=== PATIENT | female | born 1965 | race Caucasian/White ===

== ENCOUNTER 2021-01-17 15:21 | Emergency (ER) | payer OTHER ==
[~2021-01-17] VITALS: Ht 162.6 cm; Wt 73.5 kg
[2021-01-17] MEDS ORDERED: NEURONTIN300 MG PO (15:41)
[2021-01-17] MEDS ORDERED: LISINOPRIL10 MG PO (15:42)
[2021-01-17] MEDS ORDERED: CELEXA 20 MG TA20 MG PO (15:42)
[2021-01-17] MEDS ORDERED: CELEBREX50 MG PO (15:42)
[2021-01-17] MEDS ORDERED: FLEXERIL PO (15:42)
[2021-01-17] MEDS ORDERED: LAMOTRIGINE250 MG PO (15:42)
[2021-01-17] MEDS ORDERED: TRAMADOL 50 MG50 MG PO (15:43)
[2021-01-17] MEDS ORDERED: INDERAL LA120 M1 PO (15:43)
[2021-01-17] MEDS ORDERED: REGLAN 10 MG TA10 MG PO (15:43)
[2021-01-17 18:19] VITALS: BP 111/87
== END 2021-01-17 18:20 | disposition home or self-care (01) ==
LOC: M.ERS 15:21
DX: S80.12XA Contusion of left lower leg, initial encounter (principal); G43.909 Migraine, unspecified, not intractable, without status migrainosus; F17.210 Nicotine dependence, cigarettes, uncomplicated; Z79.899 Other long term (current) drug therapy; Z88.8 Allergy status to other drugs, medicaments and biological substances; W01.198A Fall on same level from slipping, tripping and stumbling with subsequent striking against other object, initial encounter; Y93.89 Activity, other specified; Y92.89 Other specified places as the place of occurrence of the external cause; Y99.9 Unspecified external cause status

== ENCOUNTER 2021-03-20 00:05 | Emergency (ER) | payer OTHER ==
[~2021-03-20] VITALS: Ht 162.6 cm; Wt 74.8 kg
[~2021-03-20 00:05] MED LIST: CELEBREX50 MG PO; CELEXA 20 MG TA20 MG PO; FLEXERIL PO; INDERAL LA120 M1 PO; LAMOTRIGINE250 MG PO; LISINOPRIL10 MG PO; NEURONTIN300 MG PO; REGLAN 10 MG TA10 MG PO; TRAMADOL 50 MG50 MG PO
[2021-03-20] MEDS ORDERED: TOPAMAX (01:12)
[2021-03-20 01:18] LABS: URINE BILIRUBIN NEGATIVE (Negative); URINE BLOOD TRACE (Negative); URINE CLARITY CLEAR; URINE COLOR YELLOW; URINE GLUCOSE-RANDOM NEGATIVE (Negative); URINE KETONES NEGATIVE (Negative); URINE LEUKOCYTES-REFLEX NEGATIVE (Negative); URINE NITRITE-REFLEX NEGATIVE (Negative); URINE PROTEIN NEGATIVE (Negative); URINE SPECIFIC GRAVITY 1.015 (1.005-1.030); URINE UROBILINOGEN 0.2 E.U./dl (0.2-1.0)
[2021-03-20 02:02] LABS: ABSOLUTE EOSINOPHILS 0.1 thou/uL (0.0-0.7); ABSOLUTE LYMPHOCYTES 1.3 thou/uL (0.8-5.3); ABSOLUTE MONOCYTES 0.6 thou/uL (0.0-1.2); ABSOLUTE NEUTROPHILS 8.2 thou/uL (1.6-8.1); BASOPHILS 0.4 %; EOSINOPHILS 0.6 %; HEMATOCRIT 38.7 % (37.0-47.0); HEMOGLOBIN 12.4 gm/dL (12.0-15.0); LYMPHOCYTES 12.7 %; MCHC 31.9 g/dL (28.0-37.0); MCV 100.3 fL (80.0-100.0); MONOCYTES 6.2 %; MPV 7.2 fl. (7.2-11.1); NUCLEATED RBCS 0 /100WBC; PLATELET COUNT* 260 thou/uL (150-400); POLYS 80.1 %; RBC 3.86 mil/uL (4.20-5.00); RDW-CV 14.4 % (10.5-14.5); WBC 10.2 thou/uL (4.0-11.0)
[2021-03-20 02:11] LABS: CALCIUM 9.9 mg/dL (8.5-10.1); CREATININE 2.7 mg/dL (0.6-1.3); POTASSIUM 4.4 mmol/L (3.5-5.1)
[2021-03-20 02:15] LABS: ALBUMIN 3.2 g/dL (3.4-5.0); TOTAL BILIRUBIN 0.4 mg/dL (<0.1-1.0); TOTAL PROTEIN 6.3 g/dL (6.4-8.2)
[2021-03-20] MEDS ORDERED: FLOMAX0.4 MG PO (03:57)
[2021-03-20] MEDS ORDERED: PERCOCET 5-3251 EACH PO (03:57)
[2021-03-20] MEDS ORDERED: ZOFRAN ODT4 MG PO (03:57)
[2021-03-20 04:14] VITALS: BP 132/80
== END 2021-03-20 04:16 | disposition home or self-care (01) ==
LOC: M.ERS 00:05
PROVIDERS: Personal Emergency Response Attendant
DX: N13.2 Hydronephrosis with renal and ureteral calculous obstruction (principal)